=== PATIENT | female | born 1965 | race Caucasian/White ===

== ENCOUNTER 2018-04-28 12:42 | Outpatient (CLI) | payer OTHER ==
--- NOTE | 2018-04-28 13:34 | RAD ---
CHEST TWO VIEWS: HISTORY: Cough. COMPARISON: None. FINDINGS: The cardiac silhouette and pulmonary vasculature are unremarkable. The mediastinum is midline. No c onfluent air space consolidation, pneumothorax, or pleural fluid. IMPRESSION: No active cardiopulmonary abnormalities demonstrated. POS: [facility]
== END 2018-04-28 12:43 | disposition home or self-care (01) ==
LOC: RAD 12:42
PROVIDERS: ATTEND Internal Medicine Gastroenterology
DX: R05 Cough (principal); R11.10 Vomiting, unspecified
CPT/HCPCS: 71046

== ENCOUNTER 2019-02-05 14:04 | Outpatient (CLI) | payer OTHER ==
--- NOTE | 2019-02-05 14:39 | MMO ---
Bilateral MAMMO Bilat Screen [facility]. CLINICAL HISTORY: Patient is 53 years old and is seen for screening. The patient has no family history of breast cancer. The patient has no personal history of cancer. VIEWS: The views performed were: bilateral craniocaudal with tomosynthesis; bilateral mediolateral oblique with tomosynthesis; and left craniocaudal. FILMS COMPARED: The present examination has been compared to a prior imaging study performed at [facility] on 12/06/2016. MAMMOGRAM FINDINGS: There are scattered fibroglandular densities. There are stable benign appearing calcifications seen in both breasts. There are no suspicious masses, suspicious calcifications, or new areas of architectural distortion. IMPRESSION: THERE IS NO MAMMOGRAPHIC EVIDENCE OF MALIGNANCY. A ROUTINE FOLLOW-UP MAMMOGRAM IN 1 YEAR IS RECOMMENDED. THE RESULTS OF THIS EXAM WERE SENT TO THE PATIENT. ACR BI-RADS Category 2 - Benign finding MAMMOGRAPHY NOTE: 1. A negative mammogram report should not delay a biopsy if a dominant of clinically suspicious mass is present. 2. Approximately 10% to 15% of breast cancers are not detected by mammography. 3. Adenosis and dense breasts may obscure an underlying neoplasm.
== END 2019-02-05 14:05 | disposition home or self-care (01) ==
LOC: BICMAMMO 14:04
PROVIDERS: ATTEND Obstetrics & Gynecology
DX: Z12.31 Encounter for screening mammogram for malignant neoplasm of breast (principal)
CPT/HCPCS: 77063; 77067

== ENCOUNTER 2021-04-15 16:46 | Emergency (ER) | payer OTHER ==
[2021-04-15] MEDS ORDERED: Ketorolac Tromethamine 30 MG/ML VIAL ONE (16:59)
[2021-04-15] MEDS ORDERED: HYDROcodone/Acetaminophen 5/325 mg Tablet ONE (17:45)
== END 2021-04-15 18:20 | disposition home or self-care (01) ==
LOC: ERS 16:46
DX: S82.042A Displaced comminuted fracture of left patella, initial encounter for closed fracture (principal); I10 Essential (primary) hypertension; W01.0XXA Fall on same level from slipping, tripping and stumbling without subsequent striking against object, initial encounter
CPT/HCPCS: 96372; J1885

== ENCOUNTER 2021-04-20 05:58 | Day surgery (SDC) | payer BC ==
[2021-04-19 11:19] VITALS: BMI 33.0
[2021-04-20] MEDS ORDERED: Midazolam HCl 2 mg/2 ml Vial ONE (06:46)
[2021-04-20] MEDS ORDERED: Fentanyl 100 MCG/2 ML VIAL ONE (06:46)
[2021-04-20 07:02] LABS: Anion Gap 13 mmol/L (10-20); BUN (Urea Nitrogen) 15 mg/dL (9.8-20.1); Calc. Creatinine Clearance 103 mL/min (70-130); Calcium 10.4 mg/dL (7.8-10.44); Carbon Dioxide 27 mmol/L (22-29); Chloride 106 mmol/L (98-107); Glucose 117 mg/dL (70-105); Potassium 5.1 mmol/L (3.5-5.1); Sodium 141 mmol/L (136-145)
[2021-04-20] MEDS ORDERED: Scopolamine 1.5 mg/72 hour Patch ONE (07:15)
[2021-04-20] MEDS ORDERED: Famotidine/PF 20 mg/2ml Vial ONE (07:15)
[2021-04-20] MEDS ORDERED: Lidocaine 1% PF 5 ML VIAL ONE (07:37)
[2021-04-20] MEDS ORDERED: Succinylcholine 200 MG/10 ml SYRINGE FS ONE (07:37)
[2021-04-20] MEDS ORDERED: Ondansetron PF 4 MG/2 ML Vial ONE (07:37)
[2021-04-20] MEDS ORDERED: Bupivacaine HCl 0.5%/Epinephrine 1:200,000/PF 30 ml Vial ONE (07:37)
[2021-04-20] MEDS ORDERED: Metoclopramide HCl 10 MG/2 ML VIAL ONE (07:37)
[2021-04-20] MEDS ORDERED: PROPOFOL 200 MG/20 ML VIAL ONE (07:37)
[2021-04-20] MEDS ORDERED: Dexamethasone 20 MG/5 ML VIAL ONE (07:37)
[2021-04-20] MEDS ORDERED: Meperidine HCl/PF 25 MG/ML VIAL ONE (08:46)
== END 2021-04-20 10:10 | disposition home or self-care (01) ==
LOC: SDC 05:58
PROVIDERS: ATTEND Orthopaedic Surgery
PROC: 3E0T3BZ Introduction of Anesthetic Agent into Peripheral Nerves and Plexi, Percutaneous Approach (ICD-10-PCS; principal; 2021-04-20)
PROC: 0QSF04Z Reposition Left Patella with Internal Fixation Device, Open Approach (ICD-10-PCS; principal; 2021-04-20)
DX: S82.032A Displaced transverse fracture of left patella, initial encounter for closed fracture (principal); G89.18 Other acute postprocedural pain; I10 Essential (primary) hypertension; Z79.899 Other long term (current) drug therapy; W19.XXXA Unspecified fall, initial encounter
CPT/HCPCS: 36415; 80048; 93005; 93010; J0690; J1100; J2175; J2250; J2405; J2704; J2765; J3010; S0028

== ENCOUNTER 2021-07-19 10:34 | Outpatient (CLI) | payer BC | END 2021-07-19 10:35 | disposition home or self-care (01) | LOC: BICMAMMO 10:34 | PROVIDERS: ATTEND Registered Nurse | DX: Z12.31 Encounter for screening mammogram for malignant neoplasm of breast (principal) | CPT/HCPCS: 77063; 77067 ==

== ENCOUNTER 2023-02-07 13:55 | Outpatient (CLI) | payer BC | END 2023-02-07 13:56 | disposition home or self-care (01) | LOC: BICMAMMO 13:55 | PROVIDERS: ATTEND Registered Nurse | DX: Z12.31 Encounter for screening mammogram for malignant neoplasm of breast (principal) | CPT/HCPCS: 77063; 77067 ==